=== PATIENT | female | born 1995 | race Caucasian/White ===

== ENCOUNTER 2016-08-05 09:12 | Emergency (ER) | payer MEDICAID ==
[~2016-08-05] VITALS: Ht 167.6 cm; Wt 80.8 kg
[2016-08-05 11:48] VITALS: BP 131/61
== END 2016-08-05 11:48 | disposition home or self-care (01) ==
LOC: ED 09:12
DX: F41.9 Anxiety disorder, unspecified (principal); F12.90 Cannabis use, unspecified, uncomplicated; R03.0 Elevated blood-pressure reading, without diagnosis of hypertension

== ENCOUNTER 2017-12-12 00:29 | Emergency (ER) | payer MEDICAID ==
[~2017-12-12] VITALS: Ht 165.1 cm; Wt 80.7 kg
[2017-12-12 02:23] VITALS: BP 122/62
== END 2017-12-12 02:23 | disposition home or self-care (01) ==
LOC: ED 00:29
DX: J06.9 Acute upper respiratory infection, unspecified (principal); H92.03 Otalgia, bilateral